=== PATIENT | male | born 1985 | race Hispanic/Latino ===

== ENCOUNTER 2017-08-22 21:57 | Emergency (ER) | payer SELFPAY ==
[2017-08-22] MEDS ORDERED: Bicillin CR 1.2 MILL UNITS/2 ML SYRINGE ONE (22:10)
== END 2017-08-22 22:41 | disposition home or self-care (01) ==
LOC: BURERS 21:57
DX: J02.9 Acute pharyngitis, unspecified (principal); I10 Essential (primary) hypertension; F17.210 Nicotine dependence, cigarettes, uncomplicated
CPT/HCPCS: 96372; J0558